=== PATIENT | male | born 1965 | race African-American/Black ===

== ENCOUNTER 2018-12-25 10:54 | Emergency (ER) | payer OTHER, SELFPAY | END 2018-12-25 13:26 | disposition home or self-care (01) | LOC: ERS 10:54 | DX: L03.112 Cellulitis of left axilla (principal); K21.9 Gastro-esophageal reflux disease without esophagitis; I10 Essential (primary) hypertension; F17.210 Nicotine dependence, cigarettes, uncomplicated | CPT/HCPCS: 99283 ==